=== PATIENT | female | born 1955 | race Caucasian/White ===

== ENCOUNTER 2016-08-29 05:39 | Day surgery (SDC) | payer BC, OTHER ==
[2016-08-18 10:37] VITALS: BP 125/79
[~2016-08-29] VITALS: Ht 157.5 cm; Wt 73.5 kg
[~2016-08-29 05:39] MED LIST: CALCIUM PO; CHOL10002 PO; LEVO75TA5 PO; LISI1TAB7 PO; MULT-516 PO; SIMV10TA3 PO
[2016-08-29] MEDS ORDERED: LACTATED RINGERS 1,000 ML IV SCH ×2 (06:20→10:13)
[2016-08-29] MEDS ORDERED: FLUORESCEIN SODIUM 500 MG/5 ML ONE (06:51)
[2016-08-29] MEDS ORDERED: BUPIVACAINE/PF-EPI 0.25% 1:200K ONE (06:51)
[2016-08-29] MEDS ORDERED: THROMBIN 5,000 UNIT VIAL TP ONE (06:52)
[2016-08-29] MEDS ORDERED: NEOMY/POLYMYXIN B GU IRR. 1 ML IRRIG ONE (07:08)
[2016-08-29] MEDS ORDERED: FENTANYL PF 250 MCG/5ML ONE (07:18)
[2016-08-29] MEDS ORDERED: MIDAZOLAM 1 MG/ML, 2ML ONE (07:19)
[2016-08-29] MEDS ORDERED: DEXAMETHASONE 4 MG/ML, 1ML ONE (07:28)
[2016-08-29] MEDS ORDERED: ONDANSETRON 2MG/ML, 2ML ONE (07:28)
[2016-08-29] MEDS ORDERED: PROPOFOL 10 MG/ML, 50ML ONE (07:28)
[2016-08-29] MEDS ORDERED: KETOROLAC 30 MG/1 ML ONE (07:28)
[2016-08-29] MEDS ORDERED: PROPOFOL 10 MG/ML, 20ML ONE (07:28)
[2016-08-29] MEDS ORDERED: CEFOTETAN 2 GM ONE (07:28)
[2016-08-29] MEDS ORDERED: EPHEDRINE 50 MG/ML, 1ML ONE (07:28)
[2016-08-29] MEDS ORDERED: ROCURONIUM 10 MG/ML ONE (07:28)
[2016-08-29] MEDS ORDERED: LABETALOL 5MG/ML, 20ML IV PRN (07:30)
[2016-08-29] MEDS ORDERED: ACETAMINOPHEN 325 MG TABLET PO PRN (07:30)
[2016-08-29] MEDS ORDERED: ONDANSETRON 2MG/ML, 2ML IVPush PRN ×2 (07:30→10:30)
[2016-08-29] MEDS ORDERED: FENTANYL PF 100 MCG/2ML IV PRN (07:30)
[2016-08-29] MEDS ORDERED: MIDAZOLAM 1 MG/ML, 2ML IV PRN (07:30)
[2016-08-29] MEDS ORDERED: PROMETHAZINE 25 MG/ML, 1ML IV PRN (07:30)
[2016-08-29] MEDS ORDERED: hydrALAzine 20 MG/ML, 1ML IV PRN (07:30)
[2016-08-29] MEDS ORDERED: HYDROmorphone 1 MG/ML, 1ML IV PRN (07:30)
[2016-08-29] MEDS ORDERED: OXYcodone 5 MG/5 ML ORAL.SOL UDC PO PRN (07:30)
[2016-08-29] MEDS ORDERED: MEPERIDINE/PF 25MG/0.5ML IVPush PRN (07:30)
[2016-08-29] MEDS ORDERED: EPHEDRINE 50 MG/ML, 1ML IVPush PRN (07:30)
[2016-08-29] MEDS ORDERED: HYDROcodone/APAP 7.5-325MG/15ML UDC PO PRN (07:30)
[2016-08-29] MEDS ORDERED: PROMETHAZINE 25 MG SUPP PR ONE (10:30)
[2016-08-29] MEDS ORDERED: IBUPROFEN 600 MG TABLET PO PRN (10:30)
[2016-08-29] MEDS ORDERED: OXYcodone/APAP 5/325MG TABLET PO PRN (10:30)
[2016-08-29] MEDS ORDERED: OXYcodone 5 MG/5 ML ORAL.SOL UDC ONE (10:39)
[2016-08-29] MEDS ORDERED: HYDROcodone/APAP 7.5-325MG/15ML UDC ONE (10:39)
== END 2016-08-29 14:40 | disposition home or self-care (01) ==
LOC: OUT 05:39
PROVIDERS: ATTEND Obstetrics & Gynecology Female Pelvic Medicine and Reconstructive Surgery
DX: N39.3 Stress incontinence (female) (male) (principal); N81.6 Rectocele; N81.5 Vaginal enterocele; N81.11 Cystocele, midline; I10 Essential (primary) hypertension; E78.5 Hyperlipidemia, unspecified; E03.9 Hypothyroidism, unspecified; Z90.710 Acquired absence of both cervix and uterus
CPT/HCPCS: 57288; 57425; 74000; C1771; C1781; J1100; J1885; J2250; J2405; J2704; J3010; J7120; S0074